=== PATIENT | female | born 1995 | race Caucasian/White ===

== ENCOUNTER 2017-08-29 12:19 | Emergency (ER) | payer MEDICAID ==
[2017-08-29 12:26] VITALS: O2SAT 98
--- NOTE | 2017-08-29 12:33 | EDPHY ---
H & P Stated Complaint: Twisted R ankle~2wks ago;still sore w/pain L calf;sent for US Time Seen by Provider: 08/29/17 12:32 HPI/ROS: HPI: This is a 22-year-old female who presents with Chief Complaint: Twisted R ankle~2wks ago;still sore w/pain L calf;sent for US Location: Right ankle Quality: Injury Duration: 2 weeks ago Signs and Symptoms: No bleeding, no radiation, no numbness, no weakness, no tingling, no incontinence, no decreased range of motion, no swelling, no pain, no fever Timing: Intermittent episodes Severity: Mild Context: Patient reports approximately 2 weeks ago, she twisted her right ankle. She reports that there is bruising and pain that has slowly improved over the last 2 weeks on the lateral aspect. She yesterday she started to developed some right calf pain. Denies any swelling/recent long distance travel. The extended control pills. Nonsmoker. No recent long distance travel. Denies paresthesias/weakness/decreased range of motion. Patient has not had any x-rays of her ankle performed. Modifying Factors: None Comment: ROS: see HPI Constitutional: No fever, no chills, no weight loss Eyes: No blurred vision Respiratory: No shortness of breath, no cough Cardiovascular: No chest pain Gastrointestinal: No nausea, no vomiting no diarrhea Genitourinary: No dysuria Extremities: No myalgias Neurologic: No weakness, no numbness Skin: No rashes Hematologic: No bruising, no bleeding MEDICAL/SURGICAL/SOCIAL HISTORY: Medical history: Generally healthy. Does not take any regular medications. Surgical history: Denies Social history: Student. Family history noncontributory. CONSTITUTIONAL: Well-appearing young adult white female, awake and alert, no obvious distress HEENT: Atraumatic and normocephalic. PULMONARY/CHEST: Symmetrical and nontender. no crepitus. Clear to auscultation bilaterally. Good air movement. No accessory muscle usage. ABDOMEN: Soft, nondistended, nontender, no ecchymosis. EXTREMITIES: 2/2 pulses, strength 5/5, right Ankle: Lateral yellowish ecchymosis. Plantar flexion to 50, dorsiflexion to 20. Foot inversion to 35 degree. No tenderness/swelling Anterior talofibular ligament. No tenderness/ swelling Calcaneofibular ligament, no tenderness/swelling posterior talofibular ligament, no tenderness/swelling posterior inferior tibiofibular ligament. Achilles tendon intact. DIP/PIP/MCP flexion/extension intact with good light touch sensation. no deformities, no clubbing, no cyanosis or edema. Negative Homans side. Calf size equal bilaterally. No palpable cords. No varicose veins. NEUROLOGICAL: no focal neuro deficits. GCS 15. Light touch sensation intact. SKIN: Warm and dry, no erythema. no rash. Good capillary refill. Source: Patient Exam Limitations: No limitations - Personal History LMP (Females 10-55): Extended Cycle BCP/Inj Current Tetanus Diphtheria and Acellular Pertussis (TDAP): Yes - Medical/Surgical History Other PMH: neg - Social History Smoking Status: Never smoked Constitutional: Initial Vital Signs Temperature (C) 36.6 C 08/29/17 12:20 Heart Rate 84 08/29/17 12:20 Respiratory Rate 18 08/29/17 12:20 Blood Pressure 119/64 08/29/17 12:20 O2 Sat (%) 98 08/29/17 12:20 O2 Delivery Mode Room Air Allergies/Adverse Reactions: No Known Allergies Allergy (Unverified 08/29/17 12:26) Home Medications: Medication Instructions Recorded Control 08/29/17 Medical Decision Making - Diagnostics Imaging Results: Imaging Impressions Extremity Venous Study 08/29/17 12:38 Impression: No evidence of deep vein thrombosis in the right lower extremity. Results called to Opal Haines at 1:22 pm. Ankle X-Ray 08/29/17 12:44 Impression: Normal ankle series ED Course/Re-evaluation: Right lower extremity ultrasound, right ankle x-ray ordered No signs of neurovascular compromise/tenting of skin/compartment syndrome/ extremities and joints examined above and below area of concern and are neurovascularly intact. 1320: Called by Dr. Fidel martinez to inform you that the right lower extremity ultrasound is negative for deep venous thrombosis. Ankle x-ray my read shows no signs of fracture, dislocation Advised rice therapy. Patient politely declined ankle stirrup splint/crutches. This patient was seen under the supervision of my secondary supervising physician. I evaluated care for this patient independently. Differential Diagnosis: Leg swelling including but not limited to hypoalbuminemia, congestive heart failure, cor pulmonale, chronic venous stasis and DVT. Departure - Departure Disposition: Home, Routine, Self-Care Clinical Impression: Right ankle sprain Qualifiers: Encounter type: initial encounter Involved ligament of ankle: unspecified ligament Qualified Code(s): S93.401A - Sprain of unspecified ligament of right ankle, initial encounter Condition: Good Instructions: Ankle Sprain (DC), R.I.C.E. Treatment (ED) Additional Instructions: Right lower extremity ultrasound is negative for blood clot. The x-rays obtained in the emergency department today demonstrate no evidence of an obvious fracture. Take Tylenol 650 mg every 4 hours and/or Ibuprofen 600 mg every 8 hours with food as needed for pain. Apply ice for 30 minutes at a time; 2-3 times per day for the next 1-2 days. Sprains can take up to 6 weeks to fully heal. Elevate your right lower extremity at the end of the day. Do not participate in contact/moderate activities until pain free. Referrals: [facility],. [Clinic] - As per Instructions Miguel Anguiano MD [Medical Doctor] - As per Instructions Stand Alone Forms: Work Excuse
[2017-08-29 13:53] VITALS: BP 116/50; PULSE 57; RESP 16; TEMP 98.1
--- NOTE | 2017-08-29 14:14 | ASMTCAGE ---
CAGE Do you feel you ought to Answers: No cut down on your drinking or drug use? Do people annoy you by Answers: No criticizing your drinking or drug use? Do you feel guilty about Answers: Yes your drinking or drug use? 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 Additional Comments Pt states she sometimes feels guilty about drinking when she gets hurt, like she did last night. She denies the need for resources at this time. Date Signed: 08/29/2017 02:10 PM Electronically Signed By:Estelle De Jesus RN
--- NOTE | 2017-08-29 14:20 | ASDISCHSUM ---
Discharge Information Plan Status:Home with No Needs Medically Cleared to Leave:08/29/2017 Discharge Date:08/29/2017 01:53 PM CM D/C Disposition:Home, Routine, Self-Care ADT D/C Disposition:Home, Routine, Self-Care Projected Discharge Date:08/29/2017 01:53 PM Transportation at D/C:Friend Discharge Delay Reason: Follow-Up Date:08/29/2017 01:53 PM Discharge Slot:2 - 12:01 pm - 18:00 pm Final Diagnosis:Ankle sprain Placement Information Patient Contact Information Contact Name:BANDAR Relationship:Mother Address: Work Phone: City: [facility] Phone: State/[place] Code: Email: Financial Information Financial Class:Medicaid Primary Plan Desc:MEDICA[employer] HEALTH [employer] Primary Plan Number:[id number] Secondary Plan Desc: Secondary Plan Number: Assessment Information CAGE Questionnaire CAGE Do you feel you ought to Answers: No cut down on your drinking or drug use? Do people annoy you by Answers: No criticizing your drinking or drug use? Do you feel guilty about Answers: Yes your drinking or drug use? 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 Additional Comments Pt states she sometimes feels guilty about drinking when she gets hurt, like she did last night. She denies the need for resources at this time. Date Signed: 08/29/2017 02:10 PM Electronically Signed By:Estelle De Jesus RN [facility] KYLEE Progress Note KYLEE Eubanks CM Note Notes: Pt presented to the Emergency Department with ankle pain lasting approximately two weeks. Met with pt to discuss SBIRT trigger. Pt denies excessive drinking and/or the need for resources at this time. She reports her drinking is a product of being "a college student and hanging out with her friends." CAGE completed. Pt denies needs. CM available for any further issues or concerns. Date Signed: 08/29/2017 02:19 PM Electronically Signed By:Estelle De Jesus RN Intervention Information
== END 2017-08-29 13:53 | disposition home or self-care (01) ==
DX: S93.401A Sprain of unspecified ligament of right ankle, initial encounter (principal); X50.9XXA Other and unspecified overexertion or strenuous movements or postures, initial encounter

== ENCOUNTER 2018-06-03 23:21 | Emergency (ER) | payer MEDICAID ==
[2018-06-03] MEDS ORDERED: PROMETHAZINE HCL 25 MG/ML INJ IVP ONE (23:30)
[2018-06-03] MEDS ORDERED: NS 1,000 ML IV ONE ×2 (23:30)
--- NOTE | 2018-06-03 23:33 | EDPHY ---
H & P Stated Complaint: N/V, chills, "ate old eggs" Source: Patient Exam Limitations: No limitations - Personal History LMP (Females 10-55): Now Current Tetanus/Diphtheria Vaccine: Yes - Medical/Surgical History Hx Asthma: No Hx Chronic Respiratory Disease: No Hx Diabetes: No Hx Cardiac Disease: No Hx Renal Disease: No Hx Cirrhosis: No Hx Alcoholism: No Hx HIV/AIDS: No Hx Splenectomy or Spleen Trauma: No Other PMH: denies - Social History Smoking Status: Never smoked Time Seen by Provider: 06/03/18 23:28 HPI/ROS: HPI: This is a 19-year-old female who presents with Chief Complaint: Nausea, vomiting, chills, ate old eggs Location: GI Quality: Nausea vomiting Duration: Signs and Symptoms: no fever, + nausea,+ vomiting, no hematemesis, no blood in stool, no abdominal bloating, no diarrhea, no back pain, no urinary symptoms, no vaginal discharge, no indigestion, no chest pain, no shortness of breath Timing: Acute, fatigue slowly improving Severity: Moderate Context: Patient is currently on menses, presents with onset of nausea, vomiting 5-10 times approximately 2 hr after eating old eggs that were over 2 weeks in the refrigerator. She reports she could come site. She reports that immediately she did not feel right in her stomach. She reports now she has not had no vomiting in the last 1 hr. She had abdominal cramping but this has since resolved. She denies any abdominal pain, diarrhea, fever. She has no urinary symptoms Modifying Factors: None Comment: ROS: A comprehensive 10 system review of systems is otherwise negative aside from elements mentioned in the history of present illness. MEDICAL/SURGICAL/SOCIAL HISTORY: Medical history: Generally healthy. Takes oral control pill. Surgical history: Denies Social history: Employed at [employer]. Nonsmoker. Family history noncontributory. CONSTITUTIONAL: Tearful, ill-appearing but nontoxic appearing young adult white female, awake and alert, no obvious distress HEENT: Atraumatic and normocephalic, PERRL, EOMI. Nares patent; no rhinorrhea; no nasal mucosal edema. Tympanic membranes clear. Oropharynx clear, no exudate and moist pink mucosa. Airway patent. No lymphadenopathy. No meningismus. Cardiovascular: Normal S1/S2, regular rate, regular rhythm, without murmur rub or gallop. PULMONARY/CHEST: Symmetrical and nontender. Clear to auscultation bilaterally. Good air movement. No accessory muscle usage. ABDOMEN: Soft, nondistended, nontender, no rebound, no guarding, no peritoneal signs, no masses or organomegaly. No CVAT. EXTREMITIES: 2/2 pulses, strength 5/5, no deformities, no clubbing, no cyanosis or edema. NEUROLOGICAL: no focal neuro deficits. GCS 15. SKIN: Warm and dry, no erythema. no rash. Good capillary refill. (Opal Haines) Constitutional: Initial Vital Signs Temperature (C) 36.9 C 06/03/18 23:22 Heart Rate 84 06/03/18 23:22 Respiratory Rate 18 06/03/18 23:22 Blood Pressure 151/76 H 06/03/18 23:22 O2 Sat (%) 96 06/03/18 23:22 O2 Delivery Mode Room Air Allergies/Adverse Reactions: No Known Allergies Allergy (Verified 06/03/18 23:23) Home Medications: Medication Instructions Recorded Control 08/29/17 Clindamycin 06/03/18 Promethazine HCl [Phenergan 25mg 25 mg PO Q6 PRN #12 tab 06/03/18 (*)] Medical Decision Making ED Course/Re-evaluation: Vital signs reviewed and stable upon arrival. IV access, laboratory studies ordered Patient given 2 L normal saline and promethazine 12.5 mg Abdomen is soft and nontender and doubt surgical process. No need for imaging. 2330: Notified by RN that patient now is refusing IV access. Complaining of her hands feeling cold with spasms. 2348: After discussion at bedside with patient. Patient now reports that she would like an IV and laboratory studies and IV fluids with antiemetics 0010: End of Shift. Signed over to Dr. Kearns pending laboratory study results and final disposition. This patient was seen under the supervision of my secondary supervising physician. I evaluated care for this patient independently. Discussed this patient with Dr. Kearns who did not see the patient. (Opal Haines) Differential Diagnosis: Differential diagnosis includes limited to viral syndrome, gastroenteritis, small-bowel obstruction, bruises, appendicitis, diverticulitis, sepsis. (Opal Haines) - Data Points Laboratory Results: Laboratory Results 06/04/18 00:00 06/04/18 06/04/18 00:00 00:00 Sodium 139 mEq/L mEq/L (135-145) Potassium 3.8 mEq/L mEq/L (3.5-5.2) Chloride 108 mEq/L mEq/L (97-110) Carbon Dioxide 21 mEq/l L mEq/l (22-31) Anion Gap 10 mEq/L mEq/L (6-14) BUN 15 mg/dL mg/dL (7-23) Creatinine 0.8 mg/dL mg/dL (0.6-1.0) Estimated GFR > 60 Glucose 84 mg/dL mg/dL (70-100) Calcium 9.7 mg/dL mg/dL (8.5-10.4) Total Bilirubin 0.5 mg/dL mg/dL (0.1-1.4) Conjugated Bilirubin 0.2 mg/dL mg/dL (0.0-0.5) Unconjugated Bilirubin 0.3 mg/dL mg/dL (0.0-1.1) AST 26 IU/L IU/L (14-46) ALT 20 IU/L IU/L (9-52) Alkaline Phosphatase 91 IU/L IU/L (38-126) Total Protein 8.5 g/dL H g/dL (6.3-8.2) Albumin 4.8 g/dL g/dL (3.5-5.0) Lipase 102 IU/L IU/L (23-300) Beta HCG, Qual NEGATIVE Medications Given: Discontinued Medications Sodium Chloride (Ns) 1,000 mls @ 0 mls/hr IV EDNOW ONE; Wide Open PRN Reason: Protocol Stop: 06/03/18 23:31 Last Admin: 06/04/18 00:02 Dose: 1,000 mls Sodium Chloride (Ns) 1,000 mls @ 0 mls/hr IV EDNOW ONE; Wide Open PRN Reason: Protocol Stop: 06/03/18 23:31 Last Admin: 06/04/18 00:03 Dose: 1,000 mls Ondansetron HCl (Zofran) 4 mg IVP EDNOW ONE Stop: 06/04/18 00:06 Last Admin: 06/04/18 00:06 Dose: 4 mg Departure - Departure Disposition: Home, Routine, Self-Care Clinical Impression: Foodborne gastroenteritis Condition: Good Instructions: Gastroenteritis (ED), Food Poisoning (ED) Additional Instructions: Consume a minimum of 8-10 glasses of water or electrolyte fluid replacement drinks that include Gatorade, Powerade, Pedialyte. Eat a bland diet for the next 48 hours and then slowly advance as tolerated. Take Zofran every 4 hr as needed for nausea, vomiting. Take promethazine 1 tab every 4-6 hours as needed for nausea, vomiting if not relieved by Zofran. Return to the Emergency Room if symptoms do not resolve in the next 48-72 hours , you spike a fever > 102 F, or experience intractable abdominal pain/nausea/ vomiting. Referrals: Jenny Palacios PA [Primary Care Provider] - 2-3 days, if not improved Prescriptions: Promethazine HCl [Phenergan 25mg (*)] 25 mg PO Q6 PRN #12 tab PRN Reason: Nausea/Vomiting, Use 2nd
[2018-06-03] MEDS ORDERED: ONDANSETRON 4MG PREPACK#2 BTL TAKEHOME ONE (23:50)
[2018-06-04] MEDS ORDERED: ONDANSETRON 4 MG/2 ML VIAL IVP ONE (00:05)
[2018-06-04 01:27] VITALS: BP 134/73
== END 2018-06-04 01:25 | disposition home or self-care (01) ==
DX: A05.9 Bacterial foodborne intoxication, unspecified (principal)
CPT/HCPCS: 96374; J2405

== ENCOUNTER 2018-08-12 22:57 | Emergency (ER) | payer MEDICAID ==
[2018-08-12] MEDS ORDERED: NS 1,000 ML IV ONE ×2 (23:20)
--- NOTE | 2018-08-12 23:20 | EDPHY ---
H & P Stated Complaint: Recent UTI, L flank pain, RLQ abd pain Time Seen by Provider: 08/12/18 23:20 HPI/ROS: HPI CHIEF COMPLAINT: Low back pain, urinary frequency, "I think I have another urinary tract infection" HISTORY OF PRESENT ILLNESS: Patient is a 23-year-old female, she presents to the emergency room stating that she believes she has another urinary tract infection. She states 2 weeks ago she was treated for urinary tract infection and completed a course of antibiotics. She reports that she presents to the emergency room with urinary frequency, and some low back pain worse on the left than right. No vomiting no fever. Does endorse urinary frequency. Also complains of some lower abdominal pain low back pain. Past Medical History: Denies significant medical history Past Surgical History: Denies significant surgical history Social History: Denies drugs alcohol tobacco. Family History: Noncontributory ROS REVIEW OF SYSTEMS: 10 Systems were reviewed and negative with the exception of the elements mentioned in the history of present illness. Exam Constitutional triage nursing summary reviewed, vital signs reviewed, awake/ alert. Eyes normal conjunctivae and sclera, EOMI, PERRLA. HENT normal inspection, atraumatic, moist mucus membranes, no epistaxis, neck supple/ no meningismus, no raccoon eyes. Respiratory clear to auscultation bilaterally, normal breath sounds, no respiratory distress, no wheezing. Cardiovascular rate normal, regular rhythm, no murmur, no edema, distal pulses normal. Gastrointestinal soft, non-tender, no rebound, no guarding, normal bowel sounds, no distension, no pulsatile mass. Genitourinary no significant CVA tenderness on exam. Musculoskeletal no midline vertebral tenderness, full range of motion, no calf swelling, no tenderness of extremities, no meningismus, good pulses, neurovascularly intact. Skin pink, warm, & dry, no rash, skin atraumatic. Neurologic awake, alert and oriented x 3, AAOx3, moves all 4 extremities equally, motor intact, sensory intact, CN II-XII intact, normal cerebellar, normal vision, normal speech. Psychiatric normal mood/affect. Heme/Lymph/Immune no lymphadenopathy. Differential Diagnosis: Differential diagnosis includes but is not limited to and in no particular order: Bowel obstruction, appendicitis, gallbladder disease, diverticulitis, colitis, enteritis, perforated viscus, gastritis, GERD , esophagitis, urinary tract infection, pyelonephritis, kidney stones Medical Decision Making: Plan for this patient IV establishment IV fluid bolus , basic labs, urinalysis, test and re-evaluate. Re-evaluation: 0113: Discussed with patient her workup including laboratory results as well as urinalysis. Her urinalysis does have some blood in it given that she has flank pain will proceed with CT scan abdomen pelvis without contrast to rule out kidney stones. I have discussed at length her she agrees for CT imaging. 0248: Patient re-evaluated resting comfortably. Her CT scan abdomen pelvis without IV contrast for flank pain and blood in his urine is unremarkable. There is no evidence of kidney stones. 2:40 a.m. Upon further discussion with the patient she reports to me she has had some vaginal is changing. She is unsure about vaginal discharge she has had her period. She is wondering if she has a yeast infection. I gave her the option to self swab or to have a pelvic exam she is agreeable on a pelvic exam. 0301AM: Pelvic exam performed. Marilia RN at bedside. Dark clotted blood in the posterior vault. Os closed. I do not appreciate any foul smell or odor, no pus , no abnormal lesions. No CMT, no adnexal fullness or masses. Unremarkable pelvic exam. Swab sent for infection. 0400: Patient lab work reviewed. Wet prep reviewed no evidence of track yeast or BV at this time. Discussed follow-up care with the patient. Return emergency room if worsening abdominal pain, flank pain, fever, vomiting. We do additionally recommend she follows up with OBGYN. Gonorrhea chlamydia are pending. Urinalysis shows some blood she is on her menstrual cycle. A pelvic exam was rather unremarkable CT scan and labs reviewed. Return precautions discussed explained I do have a great explanation for her urinary frequency and low back pain. However she has worsening symptoms she should return here. Additionally follow up with OBGYN. She is comfortable this plan. Source: Patient - Personal History LMP (Females 10-55): IUD In Place Current Tetanus Diphtheria and Acellular Pertussis (TDAP): Yes - Medical/Surgical History Hx Asthma: No Hx Chronic Respiratory Disease: No Hx Diabetes: No Hx Cardiac Disease: No Hx Renal Disease: No Hx Cirrhosis: No Hx Alcoholism: No Hx HIV/AIDS: No Hx Splenectomy or Spleen Trauma: No Other PMH: denies - Social History Smoking Status: Never smoked Constitutional: Initial Vital Signs Temperature (C) 37.1 C 08/12/18 22:58 Heart Rate 93 08/12/18 22:58 Respiratory Rate 16 08/12/18 22:58 Blood Pressure 137/63 H 08/12/18 22:58 O2 Sat (%) 99 08/12/18 22:58 O2 Delivery Mode Room Air Allergies/Adverse Reactions: No Known Allergies Allergy (Verified 08/12/18 22:58) Home Medications: Medication Instructions Recorded Control 08/29/17 Clindamycin 06/03/18 Promethazine HCl [Phenergan 25mg 25 mg PO Q6 PRN #12 tab 06/03/18 (*)] Ondansetron HCl [Zofran] 4 mg PO Q4-6PRN PRN #10 tablet 06/04/18 Medical Decision Making - Data Points Laboratory Results: Laboratory Results 08/12/18 23:25 08/12/18 23:28 08/13/18 08/13/18 08/12/18 03:00 00:40 23:28 WBC RBC Hgb Hct MCV MCH MCHC RDW Plt Count MPV Neut % (Auto) Lymph % (Auto) [place] % (Auto) Eos % (Auto) Baso % (Auto) Nucleat RBC Rel Count Absolute Neuts (auto) Absolute Lymphs (auto) Absolute Monos (auto) Absolute Eos (auto) Absolute Basos (auto) Absolute Nucleated RBC Immature Gran % Immature Gran # Sodium Potassium Chloride Carbon Dioxide Anion Gap BUN Creatinine Estimated GFR Glucose Calcium Total Bilirubin Conjugated Bilirubin Unconjugated Bilirubin AST ALT Alkaline Phosphatase Total Protein Albumin Lipase Beta HCG, Qual NEGATIVE Urine Color Urine Appearance Urine pH Ur Specific [place] Urine Protein Urine Ketones Urine Blood Urine Nitrate Urine Bilirubin Urine Urobilinogen Ur Leukocyte Esterase Urine RBC Urine WBC Ur Epithelial Cells Urine Mucus Urine Glucose Trichomonas (Wet Prep) NO TRICHOMONAS Mallorie species DNA Pending C.trachomatis RNA (TMA) Pending Gardnerella DNA Probe Pending N.gonorrhoeae RNA (TMA) Pending Trichomonas DNA Probe Pending 08/12/18 08/12/18 08/12/18 23:28 23:25 23:10 WBC 6.45 10^3/uL 10^3/uL (3.80-9.50) RBC 4.43 10^6/uL 10^6/uL (4.18-5.33) Hgb 13.9 g/dL g/dL (12.6-16.3) Hct 41.8 % % (38.0-47.0) MCV 94.4 fL fL (81.5-99.8) MCH 31.4 pg pg (27.9-34.1) MCHC 33.3 g/dL g/dL (32.4-36.7) RDW 12.4 % % (11.5-15.2) Plt Count 219 10^3/uL 10^3/uL (150-400) MPV 10.0 fL fL (8.7-11.7) Neut % (Auto) 53.6 % % (39.3-74.2) Lymph % (Auto) 35.5 % % (15.0-45.0) [place] % (Auto) 7.0 % % (4.5-13.0) Eos % (Auto) 2.9 % % (0.6-7.6) Baso % (Auto) 0.8 % % (0.3-1.7) Nucleat RBC Rel Count 0.0 % % (0.0-0.2) Absolute Neuts (auto) 3.46 10^3/uL 10^3/uL (1.70-6.50) Absolute Lymphs (auto) 2.29 10^3/uL 10^3/uL (1.00-3.00) Absolute Monos (auto) 0.45 10^3/uL 10^3/uL (0.30-0.80) Absolute Eos (auto) 0.19 10^3/uL 10^3/uL (0.03-0.40) Absolute Basos (auto) 0.05 10^3/uL 10^3/uL (0.02-0.10) Absolute Nucleated RBC 0.00 10^3/uL 10^3/uL (0-0.01) Immature Gran % 0.2 % % (0.0-1.1) Immature Gran # 0.01 10^3/uL 10^3/uL (0.00-0.10) Sodium 137 mEq/L mEq/L (135-145) Potassium 3.7 mEq/L mEq/L (3.5-5.2) Chloride 106 mEq/L mEq/L (97-110) Carbon Dioxide 23 mEq/l mEq/l (22-31) Anion Gap 8 mEq/L mEq/L (6-14) BUN 20 mg/dL mg/dL (7-23) Creatinine 0.8 mg/dL mg/dL (0.6-1.0) Estimated GFR > 60 Glucose 83 mg/dL mg/dL (70-100) Calcium 9.2 mg/dL mg/dL (8.5-10.4) Total Bilirubin 0.8 mg/dL mg/dL (0.1-1.4) Conjugated Bilirubin 0.2 mg/dL mg/dL (0.0-0.5) Unconjugated Bilirubin 0.6 mg/dL mg/dL (0.0-1.1) AST 32 IU/L IU/L (14-46) ALT 19 IU/L IU/L (9-52) Alkaline Phosphatase 73 IU/L IU/L (38-126) Total Protein 7.6 g/dL g/dL (6.3-8.2) Albumin 4.3 g/dL g/dL (3.5-5.0) Lipase 101 IU/L IU/L (23-300) Beta HCG, Qual Urine Color YELLOW Urine Appearance CLEAR Urine pH 5.0 (5.0-7.5) Ur Specific [place] 1.019 (1.002-1.030) Urine Protein NEGATIVE (NEGATIVE) Urine Ketones TRACE H (NEGATIVE) Urine Blood 3+ H (NEGATIVE) Urine Nitrate NEGATIVE (NEGATIVE) Urine Bilirubin NEGATIVE (NEGATIVE) Urine Urobilinogen NEGATIVE EU EU (0.2-1.0) Ur Leukocyte Esterase NEGATIVE (NEGATIVE) Urine RBC 5-10 /hpf H /hpf (0-3) Urine WBC 1-3 /hpf /hpf (0-3) Ur Epithelial Cells TRACE /lpf /lpf (NONE-1+) Urine Mucus TRACE /lpf /lpf (NONE-1+) Urine Glucose NEGATIVE (NEGATIVE) Trichomonas (Wet Prep) Mallorie species DNA C.trachomatis RNA (TMA) Gardnerella DNA Probe N.gonorrhoeae RNA (TMA) Trichomonas DNA Probe Medications Given: Discontinued Medications Sodium Chloride (Ns) 1,000 mls @ 0 mls/hr IV EDNOW ONE; Wide Open PRN Reason: Protocol Stop: 08/12/18 23:21 Last Admin: 08/12/18 23:30 Dose: 1,000 mls Sodium Chloride (Ns) 1,000 mls @ 0 mls/hr IV EDNOW ONE; Wide Open PRN Reason: Protocol Stop: 08/12/18 23:21 Last Admin: 08/12/18 23:51 Dose: 1,000 mls Departure - Departure Disposition: Home, Routine, Self-Care Clinical Impression: Low back pain Condition: Good Instructions: Back Pain (ED) Additional Instructions: 1. Stay well-hydrated drink lots of fluids. 2. Follow up with OBGYN. 3. Return to the emergency room if you develops worsening abdominal pain, fever , vomiting. Referrals: Jenny Palacios PA [Primary Care Provider] - As per Instructions Jacqueline Pham MD [Medical Doctor] - As per Instructions
[2018-08-12 23:39] LABS: PLATELET COUNT 219 10^3/uL (150-400)
[2018-08-13 04:11] VITALS: BP 116/63
[2018-08-13 11:20] LABS: GC AMPLIFICATION GENPROBE NEGATIVE (NEGATIVE)
== END 2018-08-13 04:10 | disposition home or self-care (01) ==
DX: M54.5 Low back pain (principal); R35.0 Frequency of micturition; E86.9 Volume depletion, unspecified